=== PATIENT | male | born 1985 | race American Indian/Alaskan Native ===

== ENCOUNTER 2018-02-12 20:06 | Emergency (ER) | payer OTHER ==
[2018-02-12] MEDS ORDERED: NACL 0.9% 1000 ML 1,000 ML IV ONE (20:15)
[2018-02-12 20:50] LABS: Basophils % (Auto) 0.3 % (0.0-1.8); Eosinophils # (Auto) 0.1 K/mm3 (0.0-0.4); Eosinophils % (Auto) 0.8 % (0.0-4.3); Hematocrit 43.4 % (35.5-45.6); Hemoglobin 14.7 gm/dl (11.8-15.2); Lymphocytes # (Auto) 1.1 K/mm3 (1.2-5.4); Lymphocytes % (Auto) 10.9 % (13.4-35.0); Mean Corpuscular HGB Conc 34 % (32-34); Mean Corpuscular Hemoglobin 33 pg (28-32); Mean Corpuscular Volume 97 fl (84-94); Monocytes # (Auto) 0.5 K/mm3 (0.0-0.8); Monocytes % (Auto) 5.3 % (0.0-7.3); Platelet Count 260 K/mm3 (140-440); Red Blood Count 4.49 M/mm3 (3.65-5.03)
[2018-02-12 21:03] LABS: Alanine Aminotransferase 34 units/L (7-56); Albumin 4.7 g/dL (3.9-5); BUN/Creatinine Ratio 19; Blood Urea Nitrogen 15 mg/dL (9-20); Calcium 9.9 mg/dL (8.4-10.2); Hemolysis Index 10; Lipase 44 units/L (13-60)
[2018-02-13] MEDS ORDERED: NACL 0.9% 1000 ML 1,000 ML ONE (06:05)
--- NOTE | 2018-02-13 07:32 | Emergency Department Report ---
Vomiting/Diarrhea - HPI Chief Complaint: Abdominal Pain Stated Complaint: ABDOMINAL PAIN Time Seen by Provider: 02/13/18 07:06 Duration: 3 Days Severity: mild Nausea/Vomiting Severity: Mild Diarrhea Severity: None Pain Location: Generalized Pain Severity: Mild Symptoms: Yes Able to Tolerate Fluids, Yes Recent Unusual Foods (ate it [employer] restaurant 3 days ago), No Watery Diarrhea, No Bloody diarrhea, No Fever, No Recent Untreated Water, No Recent use of Antibiotics, No Family w/ Similar Symptoms, No Contacts w/ Similar Symptoms, No Rash, No Hematuria, No Recent URI Symptoms Other History: This is a 32-year-old -[place] male who presents with nausea vomiting and abdominal pain for 3 days. Patient states he went to an all -you-can-eat [employer] buffet Tuesday night and started having nausea and vomiting about 30 minutes after eating meal. He went home increased fluids and went to sleep when he awoke on Tuesday morning he started having abdominal pain. Patient states he thought symptoms were resolved in 24-48 hours but continued Tuesday and so he decided to come in for evaluation. Patient states all symptoms stop while sitting here in the waiting room. He ate pretzels from the vending machine waiting in the waiting area and he feels fine while. Patient denies fever, chest pain, tarry stools, diarrhea, and burning sensation. ED Review of Systems ROS: Stated complaint: ABDOMINAL PAIN Other details as noted in HPI Constitutional: denies: chills, fever Respiratory: denies: cough, shortness of breath, wheezing Cardiovascular: denies: chest pain, palpitations Gastrointestinal: abdominal pain (generalized abdominal cramping), nausea, vomiting. denies: diarrhea Neurological: denies: headache, weakness, paresthesias Psychiatric: denies: anxiety, depression ED Past Medical Hx - Past Medical History Hx Psychiatric Treatment: Yes (ETOH abuse) Hx HIV: No Additional medical history: heart disease? - Surgical History Past Surgical History?: No - Social History Smoking Status: Current Every Day Smoker Substance Use Type: Alcohol - Medications Home Medications: Home Medications Medication Instructions Recorded Confirmed Last Taken Type Promethazine [Phenergan] 25 mg PO Q6H PRN #20 tablet 09/13/14 Unknown Rx Ranitidine HCl [Ranitidine] 300 mg PO BID #60 tablet 09/13/14 Unknown Rx hydrALAZINE [Apresoline TAB] 50 mg PO Q8HR #90 tablet 09/13/14 Unknown Rx Ondansetron [Zofran Odt] 4 mg PO TID PRN #6 tab.rapdis 02/13/18 Unknown Rx Vomiting Diarrhea Exam - Exam General: Vital signs noted. No distress. Alert and acting appropriately. HEENT: Yes Moist Mucous Membranes, No Pharyngeal Erythema, No Pharyngeal Exudates, No Rhinorrhea, No Conjuctival Injection, No Frontal Tenderness, No Maxillary Tenderness Neck: No Adenopathy, No Rigidity Lungs: Yes Clear Lung Sounds, Yes Good Air Exchange, No Wheezes, No Stridor, No Cough, No Nasal Flaring, No Retractions, No Use of Accessory Muscles Heart exam: Regular: Yes, Murmur: No, Tachycardia: No Abdomen: Tenderness: No, Peritoneal Signs: No, Distention: No, Hyperactive Bowel sounds: No Skin exam: Rash: No, Edema: No, Normal turgor: Yes Neurologic: Alert and oriented, no deficits. Musculoskeletal: Unremarkable. ED Course Vital Signs 02/12/18 02/12/18 02/13/18 20:04 20:12 02:21 Temperature 98.0 F 98 F 99.0 F Pulse Rate 53 L 60 50 L Respiratory 18 18 18 Rate Blood Pressure 100/61 100/61 109/57 O2 Sat by Pulse 100 99 98 Oximetry ED Medical Decision Making - Lab Data Result diagrams: 02/12/18 20:29 02/12/18 20:29 Lab Results 02/12/18 02/12/18 02/13/18 Range/Units 20:29 20:29 07:24 WBC 9.9 (4.5-11.0) K/mm3 RBC 4.49 (3.65-5.03) M/mm3 Hgb 14.7 (11.8-15.2) gm/dl Hct 43.4 (35.5-45.6) % MCV 97 H (84-94) fl MCH 33 H (28-32) pg MCHC 34 (32-34) % RDW 13.0 L (13.2-15.2) % Plt Count 260 (140-440) K/mm3 Lymph % (Auto) 10.9 L (13.4-35.0) % [place] % (Auto) 5.3 (0.0-7.3) % Eos % (Auto) 0.8 (0.0-4.3) % Baso % (Auto) 0.3 (0.0-1.8) % Lymph # 1.1 L (1.2-5.4) K/mm3 [place] # 0.5 (0.0-0.8) K/mm3 Eos # 0.1 (0.0-0.4) K/mm3 Baso # 0.0 (0.0-0.1) K/mm3 Seg Neutrophils % 82.7 H (40.0-70.0) % Seg Neutrophils # 8.2 H (1.8-7.7) K/mm3 Sodium 137 (137-145) mmol/L Potassium 4.2 (3.6-5.0) mmol/L Chloride 90.6 L (98-107) mmol/L Carbon Dioxide 31 H (22-30) mmol/L Anion Gap 20 mmol/L BUN 15 (9-20) mg/dL Creatinine 0.8 (0.8-1.5) mg/dL Estimated GFR > 60 ml/min BUN/Creatinine Ratio 19 % Glucose 106 H (75-100) mg/dL Calcium 9.9 (8.4-10.2) mg/dL Total Bilirubin 1.10 (0.1-1.2) mg/dL AST 35 (5-40) units/L ALT 34 (7-56) units/L Alkaline Phosphatase 50 (35-129) units/L Total Protein 7.2 (6.3-8.2) g/dL Albumin 4.7 (3.9-5) g/dL Albumin/Globulin Ratio 1.9 % Lipase 44 (13-60) units/L Urine Color Yellow (Yellow) Urine Turbidity Clear (Clear) Urine pH 7.0 (5.0-7.0) Ur Specific [place] 1.009 (1.003-1.030) Urine Protein <15 mg/dl (Negative) mg/dL Urine Glucose (UA) Neg (Negative) mg/dL Urine Ketones Neg (Negative) mg/dL Urine Blood Neg (Negative) Urine Nitrite Neg (Negative) Urine Bilirubin Neg (Negative) Urine Urobilinogen < 2.0 (<2.0) mg/dL Ur Leukocyte Esterase Neg (Negative) Urine WBC (Auto) < 1.0 (0.0-6.0) /HPF Urine RBC (Auto) 1.0 (0.0-6.0) /HPF - Medical Decision Making This is a 32 y.o. male that presents with nausea, vomiting, and abdominal cramping for 3 days. Patient is stable and was examined by me. Vitals normal. Obtained CMP, CBC, lipase, & UA. All unremarkable. Given normal saline 1L bolus in ER. Patient tolerated both soles and liquids while waiting in the emergency room. States he is feeling much better now. Plan to start zofran for gastritis. Discussed plan with patient and agreed to plan. No further questions noted by the patient. Discharged home in stable condition. Follow up with PCP in 2-3 days. Critical care attestation.: If time is entered above; I have spent that time in minutes in the direct care of this critically ill patient, excluding procedure time. ED Disposition Clinical Impression: Gastroenteritis, Nausea and vomiting in adult, Abdominal cramping, generalized Disposition: DC-01 TO HOME OR SELFCARE Is pt being admited?: No Does the pt Need Aspirin: No Condition: Stable Instructions: Gastroenteritis (ED), Acute Nausea and Vomiting (ED) Additional Instructions: Frequent hand washing is important to reduce spread. Prompt disinfection of contaminated surfaces with household chlorine bleach- based road engineer and washing of soiled clothing and bedding should be advised. If food or water is thought to be contaminated, it should be avoided. Increase fluid intake. Drinks high in sugars such as carbonated soft drinks, fruit juice, and highly sugared liquids should be avoided. Follow-up with primary care provider in 2-3 days. Prescriptions: Ondansetron [Zofran Odt] 4 mg PO TID PRN #6 tab.rapdis PRN Reason: Nausea And Vomiting Referrals: [facility] [Outside] - 3-5 Days [facility] [Outside] - 3-5 Days [facility] [Outside] - 3-5 Days Forms: Work/School Release Form(ED) Time of Disposition: 08:24 Print Language: AUSTRALIAN
[2018-02-13 07:38] LABS: Bilirubin,Urine NEG (Negative); Blood,Urine NEG (Negative); Color,Urine Yellow (Yellow); Protein,Urine <15 mg/dL mg/dL (Negative); Urobilinogen,Urine < 2.0 mg/dL (<2.0); WBC,Urine < 1.0 /HPF (0.0-6.0)
[2018-02-13 08:53] VITALS: BP 108/56
== END 2018-02-13 08:51 | disposition home or self-care (01) ==
LOC: ED 20:06
DX: K52.9 Noninfective gastroenteritis and colitis, unspecified (principal); F17.200 Nicotine dependence, unspecified, uncomplicated
CPT/HCPCS: 36415; 80053; 81001; 83690; 85025; 96360; 99283; J7030

== ENCOUNTER 2018-04-25 06:55 | Emergency (ER) | payer OTHER ==
[2018-04-25] MEDS ORDERED: NACL 0.9% 1000 ML 1,000 ML IV ONE (07:16)
[2018-04-25 07:40] LABS: Basophils % (Auto) 0.3 % (0.0-1.8); Eosinophils % (Auto) 0.5 % (0.0-4.3); Hematocrit 46.5 % (35.5-45.6); Hemoglobin 15.7 gm/dl (11.8-15.2); Lymphocytes # (Auto) 0.9 K/mm3 (1.2-5.4); Lymphocytes % (Auto) 17.1 % (13.4-35.0); Mean Corpuscular HGB Conc 34 % (32-34); Mean Corpuscular Hemoglobin 33 pg (28-32); Mean Corpuscular Volume 98 fl (84-94); Monocytes # (Auto) 0.3 K/mm3 (0.0-0.8); Monocytes % (Auto) 6.4 % (0.0-7.3); Red Blood Count 4.75 M/mm3 (3.65-5.03); Red Cell Distribution Width 12.9 % (13.2-15.2)
[2018-04-25] MEDS ORDERED: ZOFRAN IV ONE (07:48)
[2018-04-25] MEDS ORDERED: MORPHINE IV ONE (07:48)
--- NOTE | 2018-04-25 07:53 | Emergency Department Report ---
ED Abdominal Pain HPI - General Chief Complaint: GI Bleed Stated Complaint: GENERAL ILLNESS Time Seen by Provider: 04/25/18 07:40 Source: patient, EMS Mode of arrival: Stretcher Limitations: No Limitations - History of Present Illness Initial Comments: 33-year-old male history of alcohol abuse presents to ED with report of abdominal pain, nausea, vomiting 3 days. Patient states pain is located in the epigastric region, nonradiating. Denies fever chills. Patient reports he normally drinks beers plus one shot of liquor daily. Patient reports having very dark stools last night and this morning. Patient states initially emesis was clear liquids, however states episode of emesis while on the ambulanceappeared as coffee grounds. Of note patient also reports a history of bradycardia. States his heart rate usually runs in the 40s or 50s, but has been as low as 30s before. MD Complaint: abdominal pain -: days(s) (3) Location: epigastric Radiation: none Migration to: no migration Severity: severe Severity scale (0 -10): 10 Quality: aching, sharp Consistency: constant Improves With: nothing Worsens With: nothing Associated Symptoms: nausea, vomiting, melena - Related Data Previous Rx's Medication Instructions Recorded Last Taken Type Promethazine [Phenergan] 25 mg PO Q6H PRN #20 tablet 09/13/14 Unknown Rx hydrALAZINE [Apresoline TAB] 50 mg PO Q8HR #90 tablet 09/13/14 Unknown Rx raNITIdine HCl [Ranitidine] 300 mg PO BID #60 tablet 09/13/14 Unknown Rx Ondansetron [Zofran Odt] 4 mg PO TID PRN #6 tab.rapdis 02/13/18 Unknown Rx Dicyclomine [Bentyl] 20 mg PO QID PRN #20 tablet 04/25/18 Unknown Rx Esomeprazole Magnesium [Nexium] 40 mg PO DAILY #30 capsule.dr 04/25/18 Unknown Rx Promethazine [Phenergan TAB] 25 mg PO Q6HR PRN #20 tab 04/25/18 Unknown Rx Allergies Allergy/AdvReac Type Severity Reaction Status Date / Time No Known Allergies Allergy Verified 09/10/14 12:15 ED Review of Systems ROS: Stated complaint: GENERAL ILLNESS Other details as noted in HPI Comment: All other systems reviewed and negative Constitutional: denies: chills, fever Gastrointestinal: abdominal pain, nausea, vomiting, melena ED Past Medical Hx - Past Medical History Previous Medical History?: Yes Hx Psychiatric Treatment: Yes (ETOH abuse) Hx HIV: No Additional medical history: heart disease? - Surgical History Past Surgical History?: No - Social History Smoking Status: Current Every Day Smoker Substance Use Type: None - Medications Home Medications: Home Medications Medication Instructions Recorded Confirmed Last Taken Type Promethazine [Phenergan] 25 mg PO Q6H PRN #20 tablet 09/13/14 Unknown Rx hydrALAZINE [Apresoline TAB] 50 mg PO Q8HR #90 tablet 09/13/14 Unknown Rx raNITIdine HCl [Ranitidine] 300 mg PO BID #60 tablet 09/13/14 Unknown Rx Ondansetron [Zofran Odt] 4 mg PO TID PRN #6 tab.rapdis 02/13/18 Unknown Rx Dicyclomine [Bentyl] 20 mg PO QID PRN #20 tablet 04/25/18 Unknown Rx Esomeprazole Magnesium [Nexium] 40 mg PO DAILY #30 capsule.dr 04/25/18 Unknown Rx Promethazine [Phenergan TAB] 25 mg PO Q6HR PRN #20 tab 04/25/18 Unknown Rx ED Physical Exam - General Limitations: No Limitations General appearance: alert, other (appears is uncomfortable) - Head Head exam: Present: atraumatic, normocephalic - Neck Neck exam: Present: normal inspection - Respiratory Respiratory exam: Present: normal lung sounds bilaterally. Absent: respiratory distress - Cardiovascular Cardiovascular Exam: Present: normal rhythm, bradycardia - GI/Abdominal GI/Abdominal exam: Present: soft, tenderness (epigastric), guarding. Absent: distended, rebound - Rectal Rectal exam: Present: heme (-) stool (stool is brown in color) - Extremities Exam Extremities exam: Present: normal inspection - Neurological Exam Neurological exam: Present: alert, oriented X3 - Psychiatric Psychiatric exam: Present: normal affect, normal mood - Skin Skin exam: Present: warm, dry, intact, normal color ED Course Vital Signs 04/25/18 04/25/18 04/25/18 07:32 08:00 08:35 Temperature 97.6 F Pulse Rate 41 L 48 L Respiratory 16 18 Rate Blood Pressure 177/91 Blood Pressure 177/91 149/92 [Left] O2 Sat by Pulse 100 100 Oximetry 04/25/18 04/25/18 04/25/18 09:00 10:00 11:00 Temperature Pulse Rate 40 L Respiratory 15 Rate Blood Pressure 149/92 139/101 135/96 Blood Pressure [Left] O2 Sat by Pulse 100 99 99 Oximetry ED Medical Decision Making - Lab Data Result diagrams: 04/25/18 07:22 04/25/18 07:22 - EKG Data -: EKG Interpreted by Me EKG shows normal: sinus rhythm, axis, intervals, QRS complexes, ST-T waves Rate: bradycardia - EKG Data When compared to previous EKG there are: no significant change (when compared to 09/13/14) Interpretation: no acute changes - Radiology Data Radiology results: report reviewed, image reviewed CT Abd/Pelvis: no acute findings - Medical Decision Making 33-year-old male with history of alcohol abuse presents with epigastric abdominal pain, nausea and vomiting. She reports history of bradycardia, heart rate has been in the 40s, which patient states is normal for him. EKG unchanged from last EKG done 3 years ago. Blood pressure has been normal. Patient also reported black stools yesterday and this morning. Rectal exam revealed brown stool and was guaiac negative. Hemoglobin is 15. Platelets are 86, which is likely a result of pt's alcohol abuse. INR is normal. Lipase normal, no elevation in white count. CT was done which shows no acute findings. Symptoms likely due to alcoholic gastritis. Pain and nausea improved following medication here in the ED. Mother at bedside, I advised her and patient of the need to follow up with GI. I also educated patient on the effects of alcohol, and the importance of decreasing EtOH intake. - Differential Diagnosis pancreatitis, gastritis, GI bleed Critical care attestation.: If time is entered above; I have spent that time in minutes in the direct care of this critically ill patient, excluding procedure time. ED Disposition Clinical Impression: Alcoholic gastritis Disposition: DC-01 TO HOME OR SELFCARE Is pt being admited?: No Condition: Stable Instructions: Gastritis (ED), Diet for Ulcers and Gastritis (ED), Abuse of Alcohol (ED) Prescriptions: Dicyclomine [Bentyl] 20 mg PO QID PRN #20 tablet PRN Reason: abdominal pain Esomeprazole Magnesium [Nexium] 40 mg PO DAILY #30 capsule.dr Promethazine [Phenergan TAB] 25 mg PO Q6HR PRN #20 tab PRN Reason: Nausea Referrals: PRIMARY CARE, [Primary Care Provider] - 3-5 Days [facility] [Provider Group] - 3-5 Days [facility] [Provider Group] - [facility] Forms: Accompanied Note, Work/School Release Form(ED) Time of Disposition: 10:15
[2018-04-25 08:02] LABS: Alanine Aminotransferase 49 units/L (7-56); Albumin 4.5 g/dL (3.9-5); BUN/Creatinine Ratio 19; Blood Urea Nitrogen 13 mg/dL (9-20); Calcium 9.7 mg/dL (8.4-10.2); Hemolysis Index 65; Lipase 23 units/L (13-60)
[2018-04-25] MEDS ORDERED: NACL 0.9% 50 ML ONE (08:06)
[2018-04-25 08:11] LABS: Partial Thromboplastin Time 25.4 Sec. (24.2-36.6)
--- NOTE | 2018-04-25 09:20 | Cat Scan Report ---
CT ABDOMEN PELVIS WITH CONTRAST: HISTORY: Abdominal pain, blood in stool. COMPARISON: none. TECHNIQUE: Helical CT in 1.25mm intervals following IV contrast. Sagittal and coronal reconstructions. FINDINGS: Lung bases: Normal. Liver: Normal. Biliary system: Normal. Pancreas: Normal. Spleen: Normal. Kidneys/ureters/bladder: Normal. 2 tiny cysts in the left kidney are noted. Adrenal glands: Normal. Aorta: Normal. Intestines: Unremarkable given no oral contrast was administered. Appendix: Not identified. Pelvic viscera: Normal. Ascites: None. Adenopathy: None. Musculoskeletal: Normal. IMPRESSION: Unremarkable CT scan of the abdomen and pelvis with contrast.
[2018-04-25] MEDS ORDERED: PROTONIX IV ONE (09:33)
[2018-04-25 09:37] LABS: Platelet Count 86 K/mm3 (140-440)
[2018-04-25] MEDS ORDERED: NORCO 5/325 PO ONE (10:39)
[2018-04-25] MEDS ORDERED: NORCO 5/325 ONE (10:43)
[2018-04-25 11:08] VITALS: BP 135/96
== END 2018-04-25 11:42 | disposition home or self-care (01) ==
LOC: ED 06:55
DX: K29.20 Alcoholic gastritis without bleeding (principal); F17.200 Nicotine dependence, unspecified, uncomplicated; R00.1 Bradycardia, unspecified
CPT/HCPCS: 36415; 74177; 80053; 83690; 85025; 85610; 85730; 86850; 86900; 86901; 93005; 93010; 96361; 96374; 96375; 99285; C9113; G0480; J2270; J2405; Q9967; 80320